=== PATIENT | male | born 1955 | race Caucasian/White ===

== ENCOUNTER 2016-10-06 16:26 | Emergency (ER) | payer MEDICARE, OTHER ==
[~2016-10-06] VITALS: Ht 182.9 cm; Wt 82.0 kg
[~2016-10-06 16:26] MED LIST: AMIT25TA20 PO; FISH1000 PO; LEFL20 PO; NAPR-576 PO; PRED5 PO; TRAM50TA PO; ZOCO80TA PO
[2016-10-06 16:31] VITALS: BP 181/118; PULSE 126; RESP 20; TEMP 98.2; O2SAT 94
[2016-10-06] MEDS ORDERED: AMIT1TAB79 PO (16:43)
[2016-10-06] MEDS ORDERED: LEFL20 PO (16:43)
[2016-10-06] MEDS ORDERED: MILL5PAK PO (16:43)
[2016-10-06] MEDS ORDERED: FISH1000 PO (16:43)
[2016-10-06] MEDS ORDERED: TRAM50TA PO (16:43)
[2016-10-06] MEDS ORDERED: ZOCO80TA PO (16:43)
[2016-10-06] MEDS ORDERED: KETOROLAC TROMETHAMINE 60 MG/2 ML (IM) VIAL IM ONE (17:00)
[2016-10-06] MEDS ORDERED: LISINOPRIL 10 MG TAB PO ONE (17:00)
--- NOTE | 2016-10-06 17:00 | PD ---
HPI Chief Complaint: Injury Time Seen by Provider: 17:00 Travel History International Travel<30 days: No Contact w/Intl Traveler<30days: No Traveled to known affect area: No History of Present Illness HPI 61-year-old male presents to the emergency department for evaluation of left ankle pain. Patient states that he was walking up the steps when he misstepped and rolled his ankle. He experienced immediate pain, pain is now a 8 out of 10. She took a tramadol that he has prescribed to him. He did not fall and hit his head or lose consciousness. Denies any chest pain or shortness of breath. He has no other symptoms to report. PFSH Past Medical History Arthritis: Yes High Cholesterol: Yes Diminished Hearing: No Hypertension: Yes Past Surgical History Abdominal Surgery: Yes (hernia x 2) Tonsillectomy: Yes Social History Alcohol Use: No Tobacco Use: No Substance Use: No Allergies-Medications (Allergen,Severity, Reaction): Coded Allergies: Codeine (Verified Allergy, Severe, SHAKING, 10/06/16) Reported Meds & Prescriptions Reported Meds & Active Scripts Active Ibuprofen 600 Mg Tab 600 Mg PO Q8HR PRN Reported Millipred 5 mg Dose Pack (21 tabs) (Prednisolone) 5 Mg Yury 1 Tab PO DAILY Fish Oil (Capulin-3 Fatty Acids) 1,000 Mg Cap 1,000 Mg PO DAILY Zocor (Simvastatin) 80 Mg Tab 80 Mg PO DAILY Tramadol (Tramadol HCl) 50 Mg Tab 50 Mg PO TID Arava (Leflunomide) 20 Mg Tab 20 Mg PO DAILY Elavil (Amitriptyline HCl) 25 Mg Tab 1 Tab PO HS Review of Systems Except as stated in HPI: all other systems reviewed are Neg Physical Exam Narrative GENERAL: Well-nourished, well-developed well nourished male patient, in no acute distress. SKIN: Warm and dry. HEAD: Normocephalic. EYES: No scleral icterus. No injection or drainage. NECK: Supple, trachea midline. No JVD or lymphadenopathy. CARDIOVASCULAR: Regular rate and rhythm without murmurs, gallops, or rubs. RESPIRATORY: Breath sounds equal bilaterally. No accessory muscle use. EXTREMITY: The left ankle is swollen and tender over the lateral aspect but the skin is intact and there is no ligamentous instability. There is no deformity. The foot and toes are warm and well-perfused. Sensation to pain and light touch is intact. Data Data Last Documented VS Vital Signs Date Time Temp Pulse Resp B/P Pulse Ox O2 Delivery O2 Flow Rate FiO2 10/06/16 16:31 98.2 126 20 181/118 94 Room Air Orders Ketorolac Inj (Toradol Inj) (10/06/16 17:00) Ankle, Complete ([id number]) (10/06/16 ) Lisinopril (Prinivil) (10/06/16 17:00) Ice/Cold Pack (10/06/16 16:59) Splint Or Brace Apply/Monitor (10/06/16 17:25) Crutches (10/06/16 17:25) MDM Medical Decision Making Medical Screen Exam Complete: Yes Emergency Medical Condition: Yes Medical Record Reviewed: Yes Differential Diagnosis Sprain versus fracture versus dislocation versus contusion Narrative Course 61-year-old male presents to emergency department for evaluation of left ankle pain. X-ray imaging shows no acute bony abnormality. There is soft tissue swelling. Patient is placed in a Velcro stirrup splint. He is instructed on care. He agrees to return immediately with any acute worsening symptoms. Diagnosis Primary Impression: Right ankle sprain Qualified Code: S93.401A - Sprain of right ankle, unspecified ligament, initial encounter Referrals: Primary Care Physician Patient Instructions: Ankle Sprain Exercises (GEN), General Instructions Additional Instructions: Ice, brace, and elevate to reduce pain and swelling No weightbearing over the next 24-48 hours then start to weight-bear slowly as tolerated Use caution if taking steroids. NSAIDS (ibuprofen) and steroids should not be taken together Intended to wear brace for support Follow-up with her primary care provider Return immediately with any acute worsening of symptoms Med/Other Pt SpecificInfo: Prescription(s) given Scripts Ibuprofen 600 Mg [id number] Mg PO Q8HR PRN (PAIN) #30 TAB Ref 0 Prov:Yael Maria 10/06/16 Disposition: 01 DISCHARGE HOME Condition: Stable Yael Maria Oct 06, 2016 17:00
--- NOTE | 2016-10-06 17:42 | RADRPT ---
EXAM DATE/TIME: 10/06/2016 17:18 [facility] COMPARISON: No previous studies available for comparison. INDICATIONS : Right ankle rolling injury. MEDICAL HISTORY : Rheumatoid arthritis. SURGICAL HISTORY : None. ENCOUNTER: Initial ACUITY: 1 day PAIN SCORE: 7/10 LOCATION: Right lateral ankle FINDINGS: There is marked soft-tissue swelling over the lateral malleolus. Medial malleolus is intact. Talar dome is intact. CONCLUSION: Marked soft tissue swelling of the lateral malleolus without fracture. Ligamentous i njury is suspected. Satya Shen MD FACR on October 06, 2016 at 17:34 Board Certified Radiologist. This report was verified electronically.
[2016-10-06] MEDS ORDERED: IBUP-232 PO ×2 (17:46→18:02)
== END 2016-10-06 18:11 | disposition home or self-care (01) ==
LOC: NEPB 16:26
DX: S93.402A Sprain of unspecified ligament of left ankle, initial encounter (principal); X50.1XXA Overexertion from prolonged static or awkward postures, initial encounter; M25.572 Pain in left ankle and joints of left foot; E78.00 Pure hypercholesterolemia, unspecified
CPT/HCPCS: 73610; 96372; 99284; E0113; J1885; L1906